=== PATIENT | female | born 1965 | race Native Hawaiian/Other Pacific Islander ===

== ENCOUNTER 2020-07-26 12:23 | Emergency (ER) | payer OTHER ==
[~2020-07-26] VITALS: Ht 167.6 cm; Wt 136.1 kg
[2020-07-26 12:32] VITALS: BP 180/78; TEMP 97.4
[2020-07-26 13:07] LABS: PLATELET COUNT 272 K/uL (152-353)
== END 2020-07-26 14:12 | disposition home or self-care (01) ==
LOC: ED 12:23
PROVIDERS: Hospitalist
DX: N13.2 Hydronephrosis with renal and ureteral calculous obstruction (principal)
CPT/HCPCS: 36415; 80053; 81000; 83690; 85027; 96360; 99284; J1885; J2405